=== PATIENT | female | born 1960 | race Caucasian/White ===

== ENCOUNTER → 2018-03-01 15:38 | Outpatient (CLI) | payer BC, SELFPAY ==
[2018-03-01 17:22] LABS: Blood Urea Nitrogen 13 mg/dL (7-18); Calcium 8.9 mg/dL (8.5-10.1); Carbon Dioxide 29 mmol/L (21.0-32.0); Chloride 105 mmol/L (98-107); Creatinine,Serum 0.75 mg/dL (0.55-1.02); Estimated Glomerular Filt Rate 80 ml/min (>60); GFR (African American) 97 ML/MIN (>60); Glucose 105 mg/dL (74-106); Sodium 142 mmol/L (136-145)
== END ==
PROVIDERS: Family Provider Family Medicine; PCP Family Medicine; Visit Provider Otolaryngology
DX: H90.5 Unspecified sensorineural hearing loss (principal); H93.19 Tinnitus, unspecified ear; R42 Dizziness and giddiness
CPT/HCPCS: 36415; 80048

== ENCOUNTER → 2018-03-02 08:41 | Outpatient (CLI) | payer BC, SELFPAY ==
--- NOTE | 2018-03-02 08:45 | MR_ITS ---
MR head/brain wo/w con MRI the brain with without contrast Additional thin sections posterior fossa/IACs: pre and postcontrast ------- Ordering Physician: Lico Sprague MD Patient Age: 57 years: Female HISTORY: ITS.REASON: ATTENTION- IAC TECHNIQUE: Pre and postcontrast imaging of brain with additional pre and postcontrast images and IACs : Precontrast Multiplanar FLAIR, T1, T2 weighted images along with axial diffusion/ADC imaging performed on 1.5 T. Siemens, MRI. Postcontrast imaging [id number] ProHance T1-weighted images axial & coronal plane performed Additional axial 3-D volume acquisition slab from which very thin sections axial images through IACs reviewed. COMPARISON :No relevant FINDINGS IACs appear symmetric and normal bilaterally. Cranial nerve VII and VIII appear normal. No abnormalEnhancement along the course of either of these nerve nor IAC The posterior fossa with normal anatomy. Normal cranial cervical junction. Cerebellum and the luis enrique, brainstem appear unremarkable . Normal flow-void and flow patterns. at dural venous sinuses At the cerebral hemispheres there are some scattered small high signal foci bilaterally seen on the axial & coronal FLAIR image set. These are mainly in the subcortical deep white matter These are compatible with small vessel, microangiopathic ischemic gliotic changes, as seen in aging brain.. Although most likely due to underlying vascular disease particularly if vascular risk factors (hypertension diabetes vasculitis etc.) and this 57-year-old other entities such as demyelinating disease would be briefly considered & included on the differential list although I believe much less likely from imaging standpoint with onset of this age There is no mass lesion. No abnormal areas of enhancement. The visualized paranasal sinuses are well-developed and clear.. Moderate engorgement nasal turbinates. Deviation of nasal septum observed. Inferior septum deviates the right. Mastoid air cells and temporal bone otherwise unremarkable. Region of [place] grossly unremarkable on today's standard survey MR brain.Orbits unremarkable IMPRESSION 1. No mass lesion. No enhancing lesion. No territorial infarct. 2. Cranial nerve VII and VIII and IACs appear unremarkable. WNL. No abnormal areas of enhancement 3. Scattered small vessel white matter high signal foci cerebral hemispheres bilateral.- Most evident subcortical These most likely reflect chronic small vessel microangiopathic gliotic ischemic changes cerebral hemispheres particularly if the patient has vascular risk factors... (in [id number] might also include less likely demyelinating disease disease in the differential, particularly if there are lack of vascular risk factors history) .
== END ==
PROVIDERS: Family Provider Family Medicine; PCP Family Medicine; Visit Provider Otolaryngology
DX: H90.5 Unspecified sensorineural hearing loss (principal); H93.19 Tinnitus, unspecified ear; R42 Dizziness and giddiness
CPT/HCPCS: 70553; A9576

== ENCOUNTER → 2019-05-30 15:44 | Outpatient (POV) | payer BC, SELFPAY | PROVIDERS: Visit Provider Dermatology | DX: Z00.00 Encounter for general adult medical examination without abnormal findings (principal) ==

== ENCOUNTER → 2019-10-11 15:12 | Outpatient (CLI) | payer BC, SELFPAY ==
--- NOTE | 2019-10-11 15:14 | US_ITS ---
PROCEDURE: US KIDNEY CLINICAL INDICATION: KIDNEY INJURY NON TRAUMATIC The COMPARISON: CT ABDOMEN PELVIS WO CON from 09/17/2019 FINDINGS: The right kidney is [id number]. No hydronephrosis, cortical thinning, or renal mass or perinephric fluid collection is evident. The left kidney is [id number]. No hydronephrosis, cortical thinning, or renal mass or perinephric fluid collection is evident. IMPRESSION: Unremarkable bilateral renal ultrasound Dictated by: Dimitris Medina MD 10/11/2019 18:57 Electronically signed by Dimitris Medina MD in [place] 10/11/2019 18:57
== END ==
PROVIDERS: PCP Family Medicine; Visit Provider Family Medicine
DX: N17.9 Acute kidney failure, unspecified (principal)
CPT/HCPCS: 76770

== ENCOUNTER → 2019-11-16 17:43 | Outpatient (CLI) | payer BC, SELFPAY ==
[2019-11-16 19:05] LABS: Creatine Kinase 101 U/L (30-135)
[2019-11-17 12:56] LABS: Creatinine,Urine Random 67 mg/dL (Not Estab.)
[2019-11-18 04:21] LABS: Complement C3 125 mg/dL (82-167)
[2019-11-18 08:18] LABS: Antistreptolysin O Ab 68.9 IU/mL (0.0-200.0)
[2019-11-20 14:16] LABS: Anti-DNA (DS) Ab Qn 1 IU/mL (0-9)
[2019-11-20 15:25] LABS: Cytoplasmic (C-ANCA) <1:20 titer (Neg:<1:20)
[2019-11-21 04:24] LABS: Antinuclear Antibodies, IFA Negative (.); Perinuclear (P-ANCA) <1:20 titer (Neg:<1:20)
== END ==
PROVIDERS: Visit Provider Internal Medicine Nephrology
DX: N17.9 Acute kidney failure, unspecified (principal); N18.9 Chronic kidney disease, unspecified; R31.9 Hematuria, unspecified
CPT/HCPCS: 36415; 82550; 82570; 83516; 84155; 86038; 86060; 86161; 86225; 86256; 87205

== ENCOUNTER → 2019-12-05 16:39 | Outpatient (CLI) | payer BC, SELFPAY ==
[2019-12-08 13:24] LABS: Albumin 3.5 g/dL (2.9-4.4); Alpha-1-Globulin 0.3 g/dL (0.0-0.4); Alpha-2-Globulin 0.9 g/dL (0.4-1.0); Gamma Globulin 2.1 g/dL (0.4-1.8); Immunoglobulin A, Qn 71 mg/dL (87-352); Immunoglobulin G, Qn 752 mg/dL (586-1602); Protein, Total 7.9 g/dL (6.0-8.5)
[2019-12-09 19:24] LABS: Immunoglobulin M, Qn 14 mg/dL (26-217)
== END ==
PROVIDERS: Visit Provider Internal Medicine Nephrology
DX: N17.9 Acute kidney failure, unspecified (principal); N18.9 Chronic kidney disease, unspecified; R80.9 Proteinuria, unspecified; R31.9 Hematuria, unspecified
CPT/HCPCS: 36415; 82784; 84155; 84165; 86334

== ENCOUNTER → 2020-02-02 15:55 | Outpatient (CLI) | payer BC, SELFPAY ==
[2020-02-02 16:02] LABS: Microscopic, Urine URINE MICROSCOPIC (MICROSCOPIC)
[2020-02-02 16:15] LABS: Appearance,Urine CLEAR (Clear); Bilirubin,Urine Negative (Negative); Blood, Urine 1+ (Negative); Color,Urine YELLOW (Yellow); Glucose,Urine (UA) Negative (Negative); Ketones,Urine Negative (Negative); Leukocyte Esterase,Urine TRACE (Negative); Nitrate,Urine Negative (Negative); PH,Urine 7.5 (5.0-8.5); Protein,Urine 1+ (Negative); Urobilinogen,Urine 0.2 EU/dl (0.2)
[2020-02-02 16:17] LABS: Eosinophils # 0.1 K/mm3 (0.0-0.4); Lymphocytes # 1.4 K/mm3 (0.7-4.5); Monocytes # 0.3 K/mm3 (0.1-1.0); Red Cell Distribution Width 13.4 % (11.5-17.5)
[2020-02-02 16:22] LABS: Bacteria,Urine Trace /lpf
[2020-02-02 16:26] LABS: Basophils % 0.5 % (0.1-2.0); Eosinophils % 1.6 % (0.1-12.0); Hematocrit 27.3 % (37.0-47.0); Hemoglobin 9.4 g/dL (12.2-16.2); Lymphocytes % 23.6 % (10-50); Mean Corpuscular HGB Conc 34.4 g/dL (31.8-35.4); Mean Corpuscular Volume 104.6 fl (81-99); Mean Platelet Volume 7.6 fl (7.4-10.4); Monocytes % 4.2 % (1.7-9.3); Neutrophils # 4.2 K/mm3 (1.8-7.8); Neutrophils % 70.1 % (37.0-80.0); Platelet Count 497 K/mm3 (142-424); Red Blood Count 2.61 M/mm3 (4.20-5.40)
[2020-02-02 17:36] LABS: Albumin Level 4.6 g/dl (3.5-5.0); Anion Gap 12.6 mEq/L (5-15); Blood Urea Nitrogen 36 mg/dl (7-17); Calcium 9.6 mg/dl (8.4-10.2); Carbon Dioxide 30 mmol/L (22.0-30.0); Chloride 100 mmol/L (98-107); Estimated Glomerular Filt Rate 23 ml/min (>60); GFR (African American) 28 ML/MIN (>60); Glucose 98 mg/dl (74-100); Phosphorous 4.4 mg/dl (2.5-4.5); Potassium 4.6 mmoL/L (3.5-5.1); Sodium 138 mmol/L (136-145)
[2020-02-02 17:46] LABS: Intact Parathyroid Hormone 143.1 pg/mL (7.5-53.5)
[2020-02-02 18:43] LABS: Creatinine,Urine Random 53 mg/dL (Not Estab.)
[2020-02-02 19:06] LABS: 25-OH Vitamin D, Total 41.7 ng/mL (30-100)
== END ==
PROVIDERS: Visit Provider Internal Medicine Nephrology
DX: N17.9 Acute kidney failure, unspecified (principal)
CPT/HCPCS: 36415; 80069; 81001; 82306; 82570; 83970; 84155; 85025

== ENCOUNTER → 2020-04-08 15:50 | Outpatient (CLI) | payer BC, SELFPAY ==
[2020-04-08 15:53] LABS: Microscopic, Urine URINE MICROSCOPIC (MICROSCOPIC)
[2020-04-08 16:09] LABS: Basophils % 0.1 % (0.1-2.0); Eosinophils % 0.2 % (0.1-12.0); Hematocrit 32.4 % (37.0-47.0); Hemoglobin 11.3 g/dL (12.2-16.2); Lymphocytes # 0.5 K/mm3 (0.7-4.5); Mean Corpuscular HGB Conc 34.8 g/dL (31.8-35.4); Mean Corpuscular Hemoglobin 35.9 pg (27.0-31.2); Mean Corpuscular Volume 103.1 fl (81-99); Mean Platelet Volume 8.8 fl (7.4-10.4); Monocytes # 0.1 K/mm3 (0.1-1.0); Monocytes % 0.9 % (1.7-9.3); Neutrophils # 6.3 K/mm3 (1.8-7.8); Neutrophils % 91.7 % (37.0-80.0); Platelet Count 288 K/mm3 (142-424); Red Blood Count 3.14 M/mm3 (4.20-5.40); Red Cell Distribution Width 12.8 % (11.5-17.5); White Blood Count 6.9 K/mm3 (4.8-10.8)
[2020-04-08 16:12] LABS: Appearance,Urine CLEAR (Clear); Bilirubin,Urine Negative (Negative); Blood, Urine 1+ (Negative); Color,Urine YELLOW (Yellow); Glucose,Urine (UA) TRACE (Negative); Ketones,Urine Negative (Negative); Leukocyte Esterase,Urine Negative (Negative); Nitrate,Urine Negative (Negative); PH,Urine 6.5 (5.0-8.5); Protein,Urine 1+ (Negative); Specific Gravity, Urine 1.015 (1.005-1.030); Urobilinogen,Urine 0.2 EU/dl (0.2)
[2020-04-08 16:14] LABS: MANUAL DIFFERENTIAL MANUAL DIFFERENTIAL (MANUAL DIFF)
[2020-04-08 16:16] LABS: Creatinine,Urine Random 62 mg/dL (Not Estab.)
[2020-04-08 16:23] LABS: Squamous Epithelial Cell,Urine Occasional #/hpf (0-5)
[2020-04-08 16:30] LABS: Anisocytosis 1+; Lymphocytes % 6 % (10-50); Macrocytosis 1+; Neutrophils % 94 % (42-76); Platelet Estimate Normal; Total Cells Counted 100
[2020-04-08 17:46] LABS: Albumin Level 4.4 g/dl (3.5-5.0); Anion Gap 18.8 mEq/L (5-15); Blood Urea Nitrogen 25 mg/dl (7-17); Carbon Dioxide 23 mmol/L (22.0-30.0); Chloride 102 mmol/L (98-107); Estimated Glomerular Filt Rate 23 ml/min (>60); GFR (African American) 28 ML/MIN (>60); Glucose 194 mg/dl (74-100); Phosphorous 3.5 mg/dl (2.5-4.5); Potassium 4.8 mmoL/L (3.5-5.1); Sodium 139 mmol/L (136-145)
== END ==
PROVIDERS: Visit Provider Internal Medicine Nephrology
DX: N18.4 Chronic kidney disease, stage 4 (severe) (principal)
CPT/HCPCS: 36415; 80069; 81001; 82570; 84155; 85007; 85025

== ENCOUNTER → 2020-04-10 08:38 | Outpatient (POV) | payer BC, SELFPAY | PROVIDERS: Visit Provider Internal Medicine Nephrology | DX: Z00.00 Encounter for general adult medical examination without abnormal findings (principal) ==

== ENCOUNTER → 2020-09-17 16:53 | Outpatient (CLI) | payer BC, SELFPAY ==
[2020-09-17 17:31] LABS: Creatinine,Urine Random 84 mg/dL (Not Estab.)
[2020-09-17 17:37] LABS: Albumin Level 4.4 g/dl (3.5-5.0); Chloride 103 mmol/L (98-107); Potassium 3.7 mmoL/L (3.5-5.1); Sodium 138 mmol/L (136-145)
[2020-09-17 17:40] LABS: Anion Gap 9.7 mEq/L (5-15); Blood Urea Nitrogen 37 mg/dl (7-17); Calcium 9.1 mg/dl (8.4-10.2); Carbon Dioxide 29 mmol/L (22.0-30.0); Estimated Glomerular Filt Rate 23 ml/min (>60); GFR (African American) 28 ML/MIN (>60); Glucose 103 mg/dl (74-100); Phosphorous 3.9 mg/dl (2.5-4.5)
== END ==
PROVIDERS: Visit Provider Internal Medicine Nephrology
DX: N18.4 Chronic kidney disease, stage 4 (severe) (principal)
CPT/HCPCS: 36415; 80069; 82570; 84155

== ENCOUNTER 2021-04-26 16:26 | Emergency (ER) | payer BC, SELFPAY ==
--- NOTE | 2021-04-26 16:36 | PC.NURSE ---
Rudi speaking with daughters at this time.
--- NOTE | 2021-04-26 16:37 | PC.NURSE ---
Notified [facility] of pt at this time
[2021-04-26 16:50] VITALS: BP 0/0; PULSE 0; RESP 0; TEMP -17.7; TEMP 0; O2SAT 0
--- NOTE | 2021-04-26 17:09 | PC.NURSE ---
PT arrived via EMS in full cardiac arrest. EMS reports pt was found down by her sister and was down for an unknown period of time. PT has hx of multiple myloma. LMA was in place and pt was being bagged. EMS reported asystole the entire time. PT moved over to stretcher and pulse check showed asystole. See the below timeline for events that occurred. 1546- PT arrived at ED 1548- pulse check shows asystole; CPR in progress 1549- IO established in left tibia and 1mg of epi given 1551- pulse check; asystole; CPR continued 1552- 1mg of epi given 1553- pulse check; asystole; CPR resumed 1555- pulse check; asystole; Epi given; MD at bedside with US machine; no cardiac activity 1556- TOD Daughters arrived and MD and myself went out and spoke with them. They advised they had spoken with the pt last night and she said she had been feeling terrible. Sister went in today and found pt unresponsive and not breathing and immediately called 911. Rudi from [facility] spoke with daughters at this time. Daughters advised they did not want to go back to the room and see their mother at this time. I advised them that it was fine and if they changed their minds to please let me know. Came back to ED and contacted [facility] at 1638 and advised them of pt's . Spoke with Maury and she advised me that the multiple myeloma was an automatic rule out for donation. Case # [id number]. Daughters still decided that they did not want to see her at this time. Body was released to [facility]. PT left facility at 1700.
--- NOTE | 2021-04-26 22:16 | HMH.EDGENADL ---
ED Disposition Clinical Impression: Cardiac arrest Multiple myeloma Qualifiers: Multiple myeloma remission status: not in remission Qualified Code(s): C90.00 - Multiple myeloma not having achieved remission Disposition: Condition on Discharge: darin Referrals: Provider,Referral, [Primary Care Provider] - - Critical Care Critical Care Time: Yes Attestation: On 04/26/21, the high probability of a clinically significant, sudden or life threatening deterioration of the following system(s) required my full and direct attention, intervention and personal management. The time I documented below is in addition to time spent performing reported procedures but includes the following listed in this critical care notation. Total Critical Care Time: 30 Vital system(s) involved:: Circulatory Failure, Central Nervous System, Respiratory Failure My critical care processes included: Assessment & monitoring of V/S, Initial and Re-exams, Data Review/Interpretation, Coordinating Care, Medication Orders and management, Documentation Probable Cause of : Cardiac arrest Medical Decision Making - Medical Records Medical records reviewed: Yes: I reviewed the patient's medical records. - Lang Inquiry Pt receiving controlled substance: No Reason not queried -: Emergent pt cond-no time Vital Signs: 04/26/21 16:50 Temperature 0 F L Pulse Rate 0 L Respiratory Rate 0 L Blood Pressure 0/0 L Orders (Tests/Meds): ED MEDICATIONS Discontinued Medications Generic Name Dose Route Start Last Admin Trade Name Richardq PRN Reason Stop Dose Admin Epinephrine HCl 1 mg 04/26/21 15:55 04/26/21 17:34 Epinephrine 0.1 Mg/Ml 10ml Syringe (Crash Cart) IV 04/26/21 15:56 1 mg ONCE ONE Administration Epinephrine HCl 1 mg 04/26/21 15:50 04/26/21 17:34 Epinephrine 0.1 Mg/Ml 10ml Syringe (Crash Cart) IV 04/26/21 15:51 1 mg ONCE ONE Administration Epinephrine HCl 1 mg 04/26/21 15:45 04/26/21 17:33 Epinephrine 0.1 Mg/Ml 10ml Syringe (Crash Cart) IV 04/26/21 15:46 1 mg ONCE ONE Administration Medical Decision Narrative: 60-year-old female who arrives to the emergency department as a CODE BLUE via EMS. Patient was found down in her home by her sister, and EMS was called. Patient has been coding since at least 30 minutes prior to arrival, and CPR has been ongoing for the last 20 minutes. Patient does not have IV access on arrival, and airway is in place in mouth, but not intact. Patient had a definitive airway obtained via orotracheal intubation and an IO was placed in the left tibia. Epi was immediately administered. Ultrasound was used during the code event and no cardiac activity was ever witnessed. At every pulse check, patient's rhythm was pulseless electrical activity. 25 minutes total of CPR, patient had received multiple rounds of epi, chest compressions, had a definitive airway, and never had any cardiac activity on ultrasound or the monitor. Given unknown downtime, and poor outcome at this time with PEA for 25 minutes, the code was called. General Adult HPI - General Stated complaint: Code 500 Time Seen by Provider: 04/26/21 16:30 Mode of Arrival: EMS Source of Information: EMS Limitations: Altered Mental Status - History of Present Illness HPI narrative: 60-year-old obese female with known past medical history of some sort of cancer who was found unresponsive in her home by her sister. EMS was called and found patient unresponsive and pulseless. CPR was initiated approximately 20 minutes prior to arrival. Unknown exact downtime. Patient did not have IV access for epi on arrival, and airway was not patent. MD complaint: code blue Onset (ago): minute(s) (30) - Related Data Home Medications Medication Instructions Recorded Confirmed Amoxicillin [Amoxicillin 500mg 500 mg PO TID 09/17/19 09/17/19 Cap] Fluticasone Propionate [Flonase 1 spr NS DAILY 09/17/19
== END 2021-04-26 17:00 | disposition expired ==
PROVIDERS: Emergency Provider Emergency Medicine
DX: I46.9 Cardiac arrest, cause unspecified (principal); C90.00 Multiple myeloma not having achieved remission
CPT/HCPCS: 96374; 99282